=== PATIENT | male | born 1965 | race Caucasian/White ===

== ENCOUNTER 2018-11-13 14:13 | Inpatient (IN) | payer OTHER ==
[~2018-11-13] VITALS: Ht 154.9 cm; Wt 129.0 kg
--- NOTE | ~2018-11-13 | EKG ---
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
--- NOTE | ~2018-11-13 | EKG ---
[place], [place] ELECTROCARDIOGRAM REPORT NAME: JAMA DUPONT UNIT #: [id number] ROOM: 511 DOCTOR: ROCHELLE DRAFT REPORT BIRTHDATE: [birth year] [facility] Test Date: 2018-11-13 Test Time: 20:44:14 Pat Name: JAMA DUPONT Department: Room: 511 Gender: M Shaker Out: : 1965 Requested By: MANOJ GANN Order Number: [id number] Reading MD: Risa Chapman MD Measurements Intervals [place] Rate: 75 P: 47 [place]: 189 QRS: 137 QRSD: 104 T: 51 QT: 427 QTc: 477 Interpretive Statements Sinus rhythm Probable left atrial enlargement Consider right ventricular hypertrophy Borderline prolonged QT interval Electronically Signed On 11-15-2018 8:09:33 PDT by Risa Chapman MD CM:EKGRPT:ELECTROCARDIOGRAM REPORT [id number] MANOJ CALLES DRAFT REPORT MANOJ GANN DO
--- NOTE | ~2018-11-13 | EKG ---
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
[2018-11-13 14:19] VITALS: BP 165/95
[2018-11-13 15:04] LABS: BASO % 0.3 % (0.0-1.0); EOS % 0.5 % (1.0-4.0); HEMATOCRIT 38.4 % (42.0-52.0); HEMOGLOBIN 13.1 g/dl (14.0-18.0); LYMPH # 1.1 10*3/uL (1.3-4.4); LYMPH % 14.9 % (27.0-41.0); MEAN CELL VOLUME 90.4 fl (80.0-94.0); MEAN CORPUSCULAR HGB 30.8 pg (27.0-31.0); MEAN CORPUSCULAR HGB CONC 34.1 g/dl (33.0-37.0); MONO # 0.6 10*3/uL (0.1-1.0); MONO % 7.9 % (3.0-9.0); NEUT # 5.8 10*3/uL (2.3-7.9); PLATELET COUNT AUTOMATED 133 10*3/uL (130-400); RED BLOOD COUNT 4.25 10*6/uL (4.50-5.90); RED CELL DISTRI WIDTH 13.4 % (0-14.5); WHITE BLOOD COUNT 7.6 10*3/uL (4.8-10.8)
[2018-11-13 15:13] LABS: INTERNATIONAL NORM RATIO 0.9 (2.0-3.5)
[2018-11-13 15:19] LABS: ALBUMIN 3.8 gm/dl (3.1-4.5); ALKALINE PHOSPHATASE 74 U/L (45-117); BUN 18 mg/dl (7-24); CHLORIDE 106 mmol/L (98-107); CREATININE 1.03 mg/dL (0.70-1.30); POTASSIUM 3.8 mmol/L (3.5-5.1); SGOT/AST 13 IU/L (3-35); SGPT/ALT 22 U/L (12-78); SODIUM 140 mmol/L (136-145)
[2018-11-13 15:27] LABS: TROPONIN I < 0.015 ng/ml (<0.045)
[2018-11-13 15:43] LABS: BILIRUBIN NEGATIVE (NEGATIVE); BLOOD NEGATIVE (NEGATIVE); CLARITY CLEAR (CLEAR); COLOR YELLOW (YELLOW); GLUCOSE NEGATIVE (NEGATIVE); KETONE NEGATIVE (NEGATIVE); LEUKO ESTERASE NEGATIVE (NEGATIVE); NITRITE NEGATIVE (NEGATIVE)
[2018-11-13 15:52] LABS: BACTERIA TRACE; EPITHELIAL CELLS 0-2
[2018-11-13 16:00] VITALS: BP 133/71
[2018-11-13] MEDS ORDERED: TAMSULOSIN HCL0.4 MG PO (19:22)
[2018-11-13] MEDS ORDERED: ABIRATERONE AC250 MG PO (19:23)
[2018-11-13] MEDS ORDERED: PREDNISONE5 MG PO (19:24)
[2018-11-13] MEDS ORDERED: SIMVASTATIN20 MG PO (19:25)
[2018-11-13] MEDS ORDERED: OYSTER SHELL 51 EAC2 PO (19:26)
[2018-11-13] MEDS ORDERED: LISINOPRIL10 M1 PO (19:29)
[2018-11-13] MEDS ORDERED: HYDROCHLOROTH12.5 M3 PO (19:29)
[2018-11-13 20:00] VITALS: BP 124/64
[2018-11-14] VITALS: BP 117/62
[2018-11-14 06:57] LABS: CHLORIDE 108 mmol/L (98-107); CREATININE 1.04 mg/dL (0.70-1.30); SODIUM 142 mmol/L (136-145)
[2018-11-14 07:14] LABS: BUN 21 mg/dl (7-24); CHOLESTEROL 195 mg/dL (<200); FREE T4 1.02 ng/dl (0.76-1.46); HDL CHOLESTEROL 41 mg/dl (40-60); LDL CHOLESTEROL 129 mg/dL (9-159); PHOSPHOROUS 4.3 mg/dL (2.5-4.9); TRIGLYCERIDES 126 mg/dl (<150); VLDL CHOLESTEROL 25 mg/dL (6-40)
[2018-11-14 11:59] VITALS: BP 109/79
[2018-11-14] MEDS ORDERED: ZYRTEC10 MG PO (13:58)
[2018-11-14] MEDS ORDERED: HYDROCODONE-AC1 EAC1 PO (13:58)
[2018-11-14] MEDS ORDERED: ASPIRIN ADULT L81 M2 PO (13:58)
[2018-11-14] MEDS ORDERED: METOPROLOL SUCC25 M2 PO (13:58)
== END 2018-11-14 14:15 | disposition home or self-care (01) | DRG 309 ==
LOC: ED 14:13 → EDHOLD 17:27 → 5E 17:27
PROVIDERS: Nurse Practitioner; Student in an Organized Health Care Education/Training Program; ADMIT Internal Medicine
DX: I48.91 Unspecified atrial fibrillation (principal); C79.51 Secondary malignant neoplasm of bone; Z68.43 Body mass index [BMI] 50.0-59.9, adult; C61 Malignant neoplasm of prostate; E78.5 Hyperlipidemia, unspecified; I11.9 Hypertensive heart disease without heart failure; D64.9 Anemia, unspecified; E66.9 Obesity, unspecified; F12.90 Cannabis use, unspecified, uncomplicated; E87.8 Other disorders of electrolyte and fluid balance, not elsewhere classified; E83.41 Hypermagnesemia; R73.9 Hyperglycemia, unspecified; Z82.49 Family history of ischemic heart disease and other diseases of the circulatory system; Z83.3 Family history of diabetes mellitus; Z79.82 Long term (current) use of aspirin; Z92.21 Personal history of antineoplastic chemotherapy; Z79.899 Other long term (current) drug therapy